=== PATIENT | female | born 1955 | race Caucasian/White ===

== ENCOUNTER 2017-10-17 08:01 | Emergency (ER) | payer OTHER ==
[~2017-10-17] VITALS: Ht 160 cm; Wt 61.2 kg
[2017-10-17 08:30] LABS: BASOPHILS # (AUTO) 0.1 (0.0-0.1); BASOPHILS % 0.8 % (0.0-1.0); EOSINOPHILS # (AUTO) 0.2 (0.0-0.4); EOSINOPHILS % 2.8 % (0.0-6.0); HEMATOCRIT 42.8 % (34.2-44.1); HEMOGLOBIN 14.5 g/dL (12.0-16.0); LYMPHOCYTES # (AUTO) 2.1 (1.0-3.2); MEAN CORPUSCULAR HEMOGLOBIN 31.1 pg (28-32); MEAN CORPUSCULAR HGB CONC 33.9 g/dL (31-35); MEAN CORPUSCULAR VOLUME 91.8 fL (81-99); MONOCYTES # (AUTO) 0.6 (0.2-0.8); MONOCYTES % 9.1 % (4.4-11.3); NEUTROPHILS # (AUTO) 3.3 (2.1-6.9); PLATELET COUNT 214 x10e3/uL (140-360); RED BLOOD COUNT 4.66 x10e6/uL (3.6-5.1)
[2017-10-17] MEDS ORDERED: MORPHINE SULFATE 2 MG/ML SYR ONE (08:42)
[2017-10-17] MEDS ORDERED: ONDANSETRON HCL 4 MG ORAL DISINTEGRATING TAB PO ONE (08:45)
[2017-10-17] MEDS ORDERED: MORPHINE SULFATE 4 MG/ML SYR IV PRN (08:45)
[2017-10-17 08:47] LABS: ALANINE AMINOTRANSFERASE 12 IU/L (0-55); ALBUMIN 4.1 g/dL (3.5-5.0); ALBUMIN/GLOBULIN RATIO 1.3 (0.8-2.0); ALKALINE PHOSPHATASE 58 IU/L (40-150); ANION GAP 13.8 mmol/L (8-16); BLOOD UREA NITROGEN 10 mg/dL (7-26); BUN/CREATININE RATIO 12 (6-25); CALCIUM 9.4 mg/dL (8.4-10.2); CARBON DIOXIDE 26 mmol/L (22-29); CHLORIDE 105 mmol/L (98-107); CREATININE, SERUM 0.81 mg/dL (0.57-1.11); EST GLOMERULAR FILTRATION RATE > 60 ML/MIN (60-); GLUCOSE 92 mg/dL (74-118); POTASSIUM 3.8 mmol/L (3.5-5.1); SODIUM 141 mmol/L (136-145)
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
[2017-10-17] MEDS: MORPHINE SULFATE 2 MG/ML SYR IV SCH ×2 (09:22→09:53)
[2017-10-17 10:14] LABS: BILIRUBIN,URINE NEGATIVE (NEGATIVE); CLARITY,URINE CLEAR (CLEAR); COLOR,URINE YELLOW (YELLOW); KETONES,URINE NEGATIVE (NEGATIVE); LEUKOCYTE ESTERASE ,URINE NEGATIVE (NEGATIVE); NITRITE,URINE NEGATIVE (NEGATIVE); PROTEIN,URINE DIPSTICK NEGATIVE (NEGATIVE); URINE UROBILINOGEN 0.2 mg/dL (0.2 - 1)
[2017-10-17 10:22] LABS: EPITHELIAL CELLS,URINE RARE /LPF
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
[2017-10-17 11:51] VITALS: BP 100/61
== END 2017-10-17 12:21 | disposition home or self-care (01) ==
LOC: ER 08:01
DX: R10.11 Right upper quadrant pain (principal); S22.41XA Multiple fractures of ribs, right side, initial encounter for closed fracture; V43.52XA Car driver injured in collision with other type car in traffic accident, initial encounter; Y92.488 Other paved roadways as the place of occurrence of the external cause; F41.9 Anxiety disorder, unspecified; E03.9 Hypothyroidism, unspecified
CPT/HCPCS: 36415; 71045; 74176; 80053; 81001; 85025; 99284; J2270

== ENCOUNTER 2023-04-21 14:44 | Inpatient (IN) | payer MEDICARE ==
[2023-04-19 20:00] VITALS: BP 116/69; PULSE 87; RESP 20; TEMP 98.1; O2SAT 100
[~2023-04-21] VITALS: Ht 160 cm; Wt 56.7 kg
[2023-04-21] MEDS ORDERED: SODIUM CHLORIDE 0.9% 1000ML 1,000 ML IV STA (14:47)
[2023-04-21] MEDS ORDERED: ACETAMINOPHEN 325 MG TAB PO STA (14:47)
[2023-04-21 15:57] LABS: BASOPHILS % 0.2 % (0.0-1.0); EOSINOPHILS % 0.1 % (0.0-6.0); HEMATOCRIT 42.7 % (34.2-44.1); HEMOGLOBIN 13.3 g/dL (12.0-16.0); LYMPHOCYTES # (AUTO) 0.6 (1.0-3.2); LYMPHOCYTES % 3.5 % (18.0-39.1); MEAN CORPUSCULAR HEMOGLOBIN 29.4 pg (28-32); MEAN CORPUSCULAR HGB CONC 31.1 g/dL (31-35); MEAN CORPUSCULAR VOLUME 94.3 fL (81-99); MONOCYTES # (AUTO) 1.4 (0.2-0.8); MONOCYTES % 8.1 % (4.4-11.3); NEUTROPHILS % 87.8 % (38.7-80.0); PLATELET COUNT 193 x10e3/uL (140-360); RED BLOOD COUNT 4.53 x10e6/uL (3.6-5.1); RED CELL DISTRIBUTION WIDTH 14.7 % (11.7-14.4); WHITE BLOOD COUNT 17.09 x10e3/uL (4.8-10.8)
[2023-04-21 16:00] LABS: BILIRUBIN,URINE NEGATIVE (NEGATIVE); CLARITY,URINE SL CLOUDY (CLEAR); COLOR,URINE YELLOW (YELLOW); GLUCOSE, URINE NEGATIVE (NEGATIVE); KETONES,URINE NEGATIVE (NEGATIVE); LEUKOCYTE ESTERASE ,URINE NEGATIVE (NEGATIVE); NITRITE,URINE NEGATIVE (NEGATIVE); PH,URINE 5.5 (5 - 7); PROTEIN,URINE DIPSTICK 1+ (NEGATIVE); URINE UROBILINOGEN 0.2 mg/dL (0.2 - 1)
[2023-04-21 16:12] LABS: BACTERIA,URINE FEW /HPF; EPITHELIAL CELLS,URINE MODERATE /LPF; WBC,URINE (MAN) 0-5 /HPF (0-5)
[2023-04-21 16:16] LABS: ALBUMIN 3.7 g/dL (3.5-5.0); ALBUMIN/GLOBULIN RATIO 1.2 (0.8-2.0); ANION GAP 17.3 mmol/L (8-16); BILIRUBIN,TOTAL 0.6 mg/dL (0.2-1.2); CALCIUM 8.7 mg/dL (8.4-10.2); CREATININE, SERUM 0.81 mg/dL (0.57-1.11); POTASSIUM 4.3 mmol/L (3.5-5.1); TOTAL PROTEIN 6.9 g/dL (6.5-8.1)
[2023-04-21 16:22] LABS: B-TYPE NATRIURETIC PEPTIDE2 25.1 pg/mL (0-100); TROPONIN I 0.176 ng/mL (0-0.300)
[2023-04-21 16:38] VITALS: PULSE 121; RESP 20; O2SAT 99
[2023-04-21] MEDS ORDERED: ONDANSETRON HCL INJ 2MG/ML 2ML 2 MG/ML VIAL IV PRN (16:45)
[2023-04-21 18:00] VITALS: PULSE 100; RESP 33; O2SAT 100
[2023-04-21] MEDS: SODIUM CHLORIDE 0.9% 1000ML 1,000 ML IV SCH (18:01)
[2023-04-21 20:00] VITALS: BP 116/69; PULSE 87; RESP 20; TEMP 98.1; O2SAT 100
[2023-04-21] MEDS ORDERED: HYDROCHLOROTHIA25 MG PO (20:54)
[2023-04-21] MEDS ORDERED: MELOXICAM7.5 MG (20:54)
[2023-04-21] MEDS ORDERED: TRAMADOL HCL200 MG (20:54)
[2023-04-21] MEDS ORDERED: MORPHINE SULFAT30 M2 (20:54)
[2023-04-21] MEDS ORDERED: ADVAIR 250-501 EACH (20:54)
[2023-04-21] MEDS ORDERED: HYDROCODON-ACE1 EAC9 (20:54)
[2023-04-21] MEDS ORDERED: PAROXETINE HCL30 MG (20:54)
[2023-04-21] MEDS ORDERED: MORPHINE SULFAT15 M1 (20:54)
[2023-04-21] MEDS ORDERED: MORPHINE SULFAT20 M1 (20:54)
[2023-04-21] MEDS ORDERED: ESIDRIX25 MG (20:54)
[2023-04-21] MEDS ORDERED: PREDNISONE50 MG (20:54)
[2023-04-21] MEDS ORDERED: HYDROCODON-ACE1 EA12 (20:54)
[2023-04-21] MEDS ORDERED: ATORVASTATIN CA10 MG (20:54)
[2023-04-21] MEDS ORDERED: LEVOTHYROXINE100 MCG (20:54)
[2023-04-21] MEDS ORDERED: METHADONE HCL5 MG (20:54)
[2023-04-21] MEDS ORDERED: HYDROCODON-ACE1 EA11 (20:54)
[2023-04-21] MEDS ORDERED: INCRUSE ELLI62.5 MCG (20:54)
[2023-04-21 21:00] VITALS: BP 116/69; PULSE 87; RESP 20; TEMP 98; TEMP 98.1; O2SAT 100
[2023-04-21] MEDS: Morphine 4mg INJECTION 4 MG/ML INJ IV PRN (21:26)
[2023-04-22] VITALS (8 sets, daily range): BP systolic 111–149; BP diastolic 65–91; PULSE 80–109; RESP 16–20; TEMP 97.7–98.6; O2SAT 98–100
[2023-04-22] MEDS ORDERED: ALBUTEROL1.25 MG/3 NEB (01:00)
[2023-04-22] MEDS: Morphine 4mg INJECTION 4 MG/ML INJ IV PRN ×2 (02:31→11:21)
[2023-04-22] MEDS: SODIUM CHLORIDE 0.9% 1000ML 1,000 ML IV SCH ×3 (02:31→16:42)
[2023-04-22 06:19] LABS: BASOPHILS % 0.3 % (0.0-1.0); EOSINOPHILS % 0.1 % (0.0-6.0); HEMATOCRIT 36.8 % (34.2-44.1); HEMOGLOBIN 11.6 g/dL (12.0-16.0); LYMPHOCYTES # (AUTO) 1.8 (1.0-3.2); LYMPHOCYTES % 11.3 % (18.0-39.1); MEAN CORPUSCULAR HEMOGLOBIN 29.9 pg (28-32); MEAN CORPUSCULAR HGB CONC 31.5 g/dL (31-35); MEAN CORPUSCULAR VOLUME 94.8 fL (81-99); MONOCYTES # (AUTO) 1.3 (0.2-0.8); MONOCYTES % 8.2 % (4.4-11.3); NEUTROPHILS # (AUTO) 12.8 (2.1-6.9); NEUTROPHILS % 79.6 % (38.7-80.0); PLATELET COUNT 174 x10e3/uL (140-360); RED BLOOD COUNT 3.88 x10e6/uL (3.6-5.1)
[2023-04-22 06:47] LABS: ALBUMIN 2.9 g/dL (3.5-5.0); ANION GAP 12.5 mmol/L (8-16); BILIRUBIN,TOTAL 0.7 mg/dL (0.2-1.2); CREATININE, SERUM 0.65 mg/dL (0.57-1.11); POTASSIUM 4.5 mmol/L (3.5-5.1); TOTAL PROTEIN 5.7 g/dL (6.5-8.1)
[2023-04-22 06:55] LABS: TROPONIN I 0.021 ng/mL (0-0.300)
[2023-04-22 12:40] LABS: TROPONIN I 0.02 ng/mL (0-0.300)
[2023-04-22] MEDS ORDERED: Azithromycin IV 500 MG 10 ML VIAL ONE (13:46)
[2023-04-22] MEDS: CEFTRIAXONE 2 GM in SODIUM CHLORIDE 0.9% 100 ML IV SCH (14:40)
[2023-04-22] MEDS: ENOXAPARIN SOD INJ 40 MG/0.4 ML SYR SC SCH (16:42)
[2023-04-22] MEDS: FAMOTIDINE 20 MG TAB PO SCH (16:42)
[2023-04-22] MEDS: HYDROCODONE/APAP 10MG-325MG TAB PO PRN (18:34)
[2023-04-22] MEDS: ATORVASTATIN 10 MG TAB PO SCH (20:21)
[2023-04-23] VITALS (9 sets, daily range): BP systolic 125–158; BP diastolic 73–90; PULSE 66–88; RESP 17–24; TEMP 97.9–98.2; O2SAT 95–100
[2023-04-23] MEDS: SODIUM CHLORIDE 0.9% 1000ML 1,000 ML IV SCH ×3 (00:45→16:23)
[2023-04-23] MEDS: LEVOTHYROXINE SODIUM 100 MCG TAB PO SCH (06:17)
[2023-04-23] MEDS: FAMOTIDINE 20 MG TAB PO SCH ×2 (09:54→16:23)
[2023-04-23] MEDS: HYDROCHLOROTHIAZIDE 25 MG TAB PO SCH (09:54)
[2023-04-23] MEDS: METOPROLOL TARTRATE 25 MG TAB PO SCH ×2 (10:02→16:23)
[2023-04-23] MEDS: HYDROCODONE/APAP 10MG-325MG TAB PO PRN (10:03)
[2023-04-23] MEDS ORDERED: ONDANSETRON HCL 4 MG ORAL DISINTEGRATING TAB PO PRN (10:45)
[2023-04-23] MEDS: ONDANSETRON HCL INJ 2MG/ML 2ML 2 MG/ML VIAL IV PRN (11:24)
[2023-04-23] MEDS: CEFTRIAXONE 2 GM in SODIUM CHLORIDE 0.9% 100 ML IV SCH (14:54)
[2023-04-23] MEDS: Morphine 4mg INJECTION 4 MG/ML INJ IV PRN (15:00)
[2023-04-23] MEDS ORDERED: LEVALBUTEROL HCL SOLN NEBU 0.63 MG/3 ML NEB INH PRN (15:15)
[2023-04-23 15:21] LABS: CHOL/HDL RATIO 2.7 (3.0-3.6); MAGNESIUM 1.9 MG/DL (1.3-2.1); PHOSPHORUS 2.5 MG/DL (2.3-4.7)
[2023-04-23 15:28] LABS: TROPONIN I 0.007 ng/mL (0-0.300)
[2023-04-23 15:41] LABS: FREE T4 (FREE THYROXINE) 1.01 ng/dL (0.8-1.8); THYROID STIMULATING HORMONE 2.211 uIU/mL (0.350-4.940)
[2023-04-23] MEDS: ENOXAPARIN SOD INJ 40 MG/0.4 ML SYR SC SCH (16:22)
[2023-04-23] MEDS: PREDNISONE 20 MG TAB PO SCH (16:23)
[2023-04-23] MEDS: ATORVASTATIN 10 MG TAB PO SCH (23:39)
[2023-04-24] VITALS (9 sets, daily range): BP systolic 143–165; BP diastolic 80–87; PULSE 61–73; RESP 18–23; TEMP 97.7–98.1; O2SAT 96–100
[2023-04-24] MEDS: SODIUM CHLORIDE 0.9% 1000ML 1,000 ML IV SCH ×3 (04:58→16:45)
[2023-04-24] MEDS ORDERED: METOPROLOL TARTRATE INJ 1 MG/ML VIAL IV PRN (05:15)
[2023-04-24] MEDS: LEVOTHYROXINE SODIUM 100 MCG TAB PO SCH (06:38)
[2023-04-24] MEDS: HYDROCODONE/APAP 10MG-325MG TAB PO PRN ×2 (06:41→18:47)
[2023-04-24 06:49] LABS: BASOPHILS % 0.1 % (0.0-1.0); HEMATOCRIT 36.1 % (34.2-44.1); HEMOGLOBIN 11.4 g/dL (12.0-16.0); LYMPHOCYTES # (AUTO) 0.9 (1.0-3.2); LYMPHOCYTES % 9.6 % (18.0-39.1); MEAN CORPUSCULAR HEMOGLOBIN 29.1 pg (28-32); MEAN CORPUSCULAR HGB CONC 31.6 g/dL (31-35); MEAN CORPUSCULAR VOLUME 92.1 fL (81-99); MONOCYTES # (AUTO) 0.7 (0.2-0.8); MONOCYTES % 7.5 % (4.4-11.3); NEUTROPHILS # (AUTO) 7.9 (2.1-6.9); NEUTROPHILS % 82.2 % (38.7-80.0); PLATELET COUNT 215 x10e3/uL (140-360); RED BLOOD COUNT 3.92 x10e6/uL (3.6-5.1); RED CELL DISTRIBUTION WIDTH 14.2 % (11.7-14.4); WHITE BLOOD COUNT 9.63 x10e3/uL (4.8-10.8)
[2023-04-24 07:10] LABS: ANION GAP 15.1 mmol/L (8-16); CALCIUM 8.8 mg/dL (8.4-10.2); CREATININE, SERUM 0.63 mg/dL (0.57-1.11); POTASSIUM 4.1 mmol/L (3.5-5.1)
[2023-04-24] MEDS: SALMETEROL XINAF/FLUTICASONE 250/50 MCG INHALER INH SCH ×3 (07:50→19:08)
[2023-04-24] MEDS: FAMOTIDINE 20 MG TAB PO SCH ×2 (09:04→17:27)
[2023-04-24] MEDS: METOPROLOL TARTRATE 25 MG TAB PO SCH ×2 (09:04→17:34)
[2023-04-24] MEDS: HYDROCHLOROTHIAZIDE 25 MG TAB PO SCH (09:05)
[2023-04-24] MEDS: Morphine 4mg INJECTION 4 MG/ML INJ IV PRN (13:22)
[2023-04-24] MEDS: CEFTRIAXONE 2 GM in SODIUM CHLORIDE 0.9% 100 ML IV SCH (14:40)
[2023-04-24] MEDS: PREDNISONE 20 MG TAB PO SCH (17:27)
[2023-04-24] MEDS: ENOXAPARIN SOD INJ 40 MG/0.4 ML SYR SC SCH (17:34)
[2023-04-24] MEDS: ONDANSETRON HCL INJ 2MG/ML 2ML 2 MG/ML VIAL IV PRN (18:47)
[2023-04-24] MEDS: ATORVASTATIN 10 MG TAB PO SCH (20:24)
[2023-04-24] MEDS ORDERED: HYDROCODONE/APAP 10MG-325MG TAB PO PRN (20:30)
[2023-04-25] VITALS (9 sets, daily range): BP systolic 159–182; BP diastolic 80–104; PULSE 52–74; RESP 18–25; TEMP 97.8–98.2; O2SAT 95–100
[2023-04-25] MEDS: SODIUM CHLORIDE 0.9% 1000ML 1,000 ML IV SCH ×2 (02:46→09:11)
[2023-04-25] MEDS: ONDANSETRON HCL INJ 2MG/ML 2ML 2 MG/ML VIAL IV PRN (05:10)
[2023-04-25] MEDS: LEVOTHYROXINE SODIUM 100 MCG TAB PO SCH (05:23)
[2023-04-25] MEDS: SALMETEROL XINAF/FLUTICASONE 250/50 MCG INHALER INH SCH (06:52)
[2023-04-25] MEDS ORDERED: AZITHROMYCIN 250 MG TAB PO SCH (09:00)
[2023-04-25] MEDS: FAMOTIDINE 20 MG TAB PO SCH (09:09)
[2023-04-25] MEDS: HYDROCHLOROTHIAZIDE 25 MG TAB PO SCH (09:10)
[2023-04-25] MEDS: METOPROLOL TARTRATE 25 MG TAB PO SCH (09:10)
[2023-04-25] MEDS ORDERED: PREDNISONE20 MG PO (12:51)
[2023-04-25] MEDS ORDERED: AZITHROMYCIN250 MG PO (12:51)
[2023-04-27] MEDS ORDERED: METOPROLOL TART25 MG PO (16:31)
== END 2023-04-25 14:18 | disposition home or self-care (01) | DRG 871 ==
LOC: ER 14:50 → ERHOLD 16:45 → MED/SURG2 18:26
PROVIDERS: ADMIT Internal Medicine; ATTEND Internal Medicine
DX: A41.9 Sepsis, unspecified organism (principal); G93.41 Metabolic encephalopathy; J18.9 Pneumonia, unspecified organism; J96.21 Acute and chronic respiratory failure with hypoxia; J44.1 Chronic obstructive pulmonary disease with (acute) exacerbation; I47.10 Supraventricular tachycardia, unspecified; R65.20 Severe sepsis without septic shock; I45.10 Unspecified right bundle-branch block; E78.5 Hyperlipidemia, unspecified; E03.9 Hypothyroidism, unspecified; M41.9 Scoliosis, unspecified; G89.4 Chronic pain syndrome; J43.9 Emphysema, unspecified; D64.9 Anemia, unspecified; Z99.81 Dependence on supplemental oxygen; Z11.52 Encounter for screening for COVID-19; F03.90 Unspecified dementia, unspecified severity, without behavioral disturbance, psychotic disturbance, mood disturbance, and anxiety; Z87.891 Personal history of nicotine dependence
CPT/HCPCS: 36415; 36600; 70450; 71045; 71250; 74230; 80048; 80053; 80061; 81001; 82550; 83036; 83605; 83690; 83735; 83880; 84100; 84439; 84443; 84484; 85025; 85379; 87040; 93005; 93306; 94664; 94799; 99285; J0696; J1650; J2270; J2405; J2543; J7030; J7050; J7512; Q0162; U0002

== ENCOUNTER → 2024-06-01 | Outpatient (REF) | payer MEDICARE ==
[~2024-06-01] MED LIST: ADVAIR 250-501 EACH; ALBUTEROL1.25 MG/3 NEB; ATORVASTATIN CA10 MG; AZITHROMYCIN250 MG PO; ESIDRIX25 MG; HYDROCHLOROTHIA25 MG PO; HYDROCODON-ACE1 EA11; HYDROCODON-ACE1 EA12; HYDROCODON-ACE1 EAC9; INCRUSE ELLI62.5 MCG; LEVOTHYROXINE100 MCG; MELOXICAM7.5 MG; METHADONE HCL5 MG; METOPROLOL TART25 MG PO; MORPHINE SULFAT15 M1; MORPHINE SULFAT20 M1; MORPHINE SULFAT30 M2; PAROXETINE HCL30 MG; PREDNISONE20 MG PO; PREDNISONE50 MG; TRAMADOL HCL200 MG
== END ==
LOC: CT 12:37
PROVIDERS: ATTEND Internal Medicine Cardiovascular Disease
DX: J44.9 Chronic obstructive pulmonary disease, unspecified (principal)
CPT/HCPCS: 71250